=== PATIENT | male | born 1970 | race Caucasian/White ===

== ENCOUNTER 2017-10-16 00:56 | Observation (INO) | payer BC ==
[2017-10-16] MEDS ORDERED: NS 1,000 ML IV ONE ×3 (01:13→03:55)
--- NOTE | 2017-10-16 01:21 | EDPHY ---
H & P Stated Complaint: dizziness Time Seen by Provider: 10/16/17 01:34 HPI/ROS: CHIEF COMPLAINT: lightheadedness, low blood pressure. HISTORY OF PRESENT ILLNESS: This is a 47-year-old male, history of diabetes, hypertension he presents emergency room with lightheadedness and low blood pressure. Patient states that he had a normal day today he went upstairs to go finished the show that they were watching he got up out of bed and got very lightheaded he was going to pass out. He denies any abdominal pain. He felt very lightheaded felt like he was going to pass out. He took his blood pressure multiple times at home and had blood pressure readings in the 70s to 80s systolic. He presents emergency room is noted to be hypotensive in the 70s. Patient needs blood pressure typically runs 120 systolic. Past Medical History: Diabetes, hypertension Past Surgical History: No recent surgery Social History: He denies drugs alcohol tobacco Family History: Noncontributory ROS REVIEW OF SYSTEMS: 10 Systems were reviewed and negative with the exception of the elements mentioned in the history of present illness. Exam Constitutional triage nursing summary reviewed, vital signs reviewed, awake/ alert. Vital signs noted at triage is slightly hypotensive. Blood pressure in the 70s. Eyes normal conjunctivae and sclera, EOMI, PERRLA. HENT normal inspection, atraumatic, moist mucus membranes, no epistaxis, neck supple/ no meningismus, no raccoon eyes. Respiratory clear to auscultation bilaterally, normal breath sounds, no respiratory distress, no wheezing. Cardiovascular rate normal, regular rhythm, no murmur, no edema, distal pulses normal. Gastrointestinal soft, non-tender, no rebound, no guarding, normal bowel sounds, no distension, no pulsatile mass. Genitourinary no CVA tenderness. Musculoskeletal no midline vertebral tenderness, full range of motion, no calf swelling, no tenderness of extremities, no meningismus, good pulses, neurovascularly intact. Skin pink, warm, & dry, no rash, skin atraumatic. Neurologic awake, alert and oriented x 3, AAOx3, moves all 4 extremities equally, motor intact, sensory intact, CN II-XII intact, normal cerebellar, normal vision, normal speech. Psychiatric normal mood/affect. Heme/Lymph/Immune no lymphadenopathy. Differential Diagnosis: Includes but is not limited to in a particular order hypotension due to dehydration, cardiac arrhythmia, acute coronary syndrome, PE , aortic dissection, aneurysm, medication induced, Medical Decision Making: Plan for this patient IV establishment IV fluid bolus , check blood work, chest x-ray, EKG, troponin and close monitoring his vitals. Re-evaluation: EKG interpretation by me on record in [employer] system. Impression time of EKG 1:13 a.m., sinus rhythm rate of 76. No signs of acute ischemia or cardiac arrhythmia. 0543: ED x-ray chest one view reviewed negative for acute cardiopulmonary disease. Neuro mediastinum. No cardiomegaly. No evidence of pneumonia 0543: Patient resting comfortably. He has had hypotension here multiple times despite lead 3 L of fluid. At this time is blood pressure is 113/79 heart rate 68 pulse ox 95%. Unclear etiology of hypotension. However given his persistent hypertension patient be admitted the hospital for observation. There is no evidence of infection on exam. Lactic acid is normal. No high white blood cell count. No fever. Patient has no complaints except lightheadedness. Plan will be for observation today due to persistent hypotension. It is possible he was dehydrated also takes blood pressure medication he reports he did not take any additional blood pressure medication. He has not had any chest pain or shortness of breath. 0600: Patient has persistent hypotension here. This is unclear etiology of his hypotension. He does not appear septic. Lactic acid was normal. It is possible he has hypotensive due to dehydration, being diabetic and his medications. Plan will be for admission for hypotension and observation. He has had 3 L of fluid. Blood pressure slightly improved. Spoke with the hospitalist service Dr. Hall to admit. Source: Patient - Personal History Current Tetanus Diphtheria and Acellular Pertussis (TDAP): Yes - Medical/Surgical History Hx Asthma: No Hx Chronic Respiratory Disease: No Hx Diabetes: Yes Hx Cardiac Disease: No Hx Renal Disease: No Hx Cirrhosis: No Hx Alcoholism: No Hx HIV/AIDS: No Hx Splenectomy or Spleen Trauma: No Other PMH: DM2, arachonoididtis, fusion, lamenectomies, neurostimulator, - Social History Smoking Status: Never smoked Constitutional: Initial Vital Signs Temperature (C) 36.5 C 10/16/17 01:04 Heart Rate 79 10/16/17 01:04 Respiratory Rate 16 10/16/17 01:04 Blood Pressure 76/52 L 10/16/17 01:04 O2 Sat (%) 94 10/16/17 01:04 O2 Delivery Mode Room Air Allergies/Adverse Reactions: No Known Allergies Allergy (Verified 10/16/17 08:31) Home Medications: Medication Instructions Recorded Loratadine 10 - 20 mg PO DAILY PRN 10/16/17 Tizanidine HCl 8 - 12 mg PO HS PRN 10/16/17 Venlafaxine HCl [Venlafaxine HCl 150 mg PO DAILY 10/16/17 ER] metFORMIN HCL [Glucophage 500 mg 1,000 mg PO BIDMEAL 10/16/17 (*)] oxyCODONE HCL/ACETAMINOPHEN 1 each PO QID PRN 10/16/17 [Percocet 10-325 mg Tablet] sitaGLIPtin PHOSPHATE [Januvia 100 100 mg PO DAILY 10/16/17 MG (*)] Medical Decision Making - Data Points Laboratory Results: Laboratory Results 10/16/17 01:20 10/16/17 01:20 Microbiology Results: MICROBIOLOGY 10/16/17 04:45 Blood Blood Culture - Preliminary Medications Given: Discontinued Medications Acetaminophen (Tylenol) 650 mg PO Q4HRS PRN PRN Reason: Pain, Mild/Fever, Can Take PO Stop: 04/14/18 06:40 Last Admin: 10/16/17 12:27 Dose: 650 mg Cetirizine HCl (Zyrtec) 10 mg PO DAILY [place] Stop: 04/14/18 09:44 Last Admin: 10/16/17 10:04 Dose: 10 mg Sodium Chloride (Ns) 1,000 mls @ 0 mls/hr IV EDNOW ONE; Wide Open PRN Reason: Protocol Stop: 10/16/17 01:14 Last Admin: 10/16/17 01:22 Dose: 1,000 mls Sodium Chloride (Ns) 1,000 mls @ 0 mls/hr IV ONCE ONE PRN Reason: Wide Open Stop: 10/16/17 01:52 Last Admin: 10/16/17 01:55 Dose: 1,000 mls Sodium Chloride (Ns) 1,000 mls @ 0 mls/hr IV ONCE ONE; Wide Open PRN Reason: Protocol Stop: 10/16/17 03:56 Last Admin: 10/16/17 03:56 Dose: 1,000 mls Sodium Chloride (Ns) 1,000 mls @ 150 mls/hr IV CONT [facility] Stop: 04/14/18 06:44 Last Admin: 10/16/17 09:15 Dose: 1,000 mls Oxycodone HCl (Oxycodone Ir) 5 mg PO QID PRN PRN Reason: Pain, Severe Able to Take PO Stop: 10/26/17 09:38 Last Admin: 10/16/17 10:04 Dose: 5 mg Oxycodone/Acetaminophen (Percocet 5/325) 1 tab PO QID PRN PRN Reason: Pain, Breakthrough Last Admin: 10/16/17 10:04 Dose: 1 tab Sitagliptin Phosphate (Januvia) 100 mg PO DAILY [facility] Stop: 04/14/18 08:59 Last Admin: 10/16/17 10:04 Dose: 100 mg Venlafaxine HCl (Effexor Xr) 150 mg PO DAILY [place] Stop: 04/14/18 08:59 Last Admin: 10/16/17 10:04 Dose: 150 mg Point of Care Test Results: Chemistry 10/16/17 01:59 POC Troponin I 0.01 ng/mL ng/mL (0.00-0.08) Departure - Departure Disposition: [facility] Acute Clinical Impression: Dehydration Hypotension Qualifiers: Hypotension type: unspecified hypotension type Qualified Code(s): I95.9 - Hypotension, unspecified Condition: Fair
[2017-10-16 01:32] LABS: PLATELET COUNT 339 10^3/uL (150-400)
[2017-10-16 01:40] LABS: INR 0.98 (0.83-1.16); PROTIME(PATIENT) 13.2 SEC (12.0-15.0)
[2017-10-16] MEDS ORDERED: ACETAMINOPHEN 325 MG TAB PO PRN (06:41)
[2017-10-16] MEDS ORDERED: ONDANSETRON 4 MG/2 ML VIAL IVP PRN (06:41)
[2017-10-16] MEDS ORDERED: NS 1,000 ML IV SCH (06:45)
[2017-10-16] MEDS ORDERED: OXYCODONE/APAP 5/325 TAB PO PRN (08:33)
[2017-10-16] MEDS ORDERED: D50W 25 GM/50 ML SYR IVP PRN (08:44)
[2017-10-16] MEDS ORDERED: VENLAFAXINE XR 150 MG CAP PO SCH (09:00)
--- NOTE | 2017-10-16 09:21 | GHP ---
DATE OF ADMISSION: 10/16/2017 CHIEF COMPLAINT: Hypotension. HISTORY OF PRESENT ILLNESS: This is a 47-year-old man with hypertension, diabetes, chronic pain who presents with low blood pressures. He tells me that yesterday was a normal day. He cleaned up aroun d the house. He ate dinner and was watching movies. He went upstairs, lay down to finish the movie. When he stood up, he felt very dizzy and lightheaded. He took his blood pressure. It was around 8 0/50. This is quite low for him. He rechecked it a few times, got similar readings, and then the samara hernandez was airing out he believes because his blood pressure was too low to read. He did not have any nausea, vomiting, fever, diarrhea yesterday. He ate and drank normally. He did not have any chest pain during this event though he did have a small amount on the way to the hospital. He takes lisino pril 10 mg which was started about a month ago and metoprolol 25 mg which he believes was started abo ut a year ago. He has chronic pain, was previously taking Nucynta 200 mg twice a day, changed to a l cathy-acting hydrocodone at 30 mg twice a day. He continues on his normal Percocet which is approximat katlin 40 mg of oxycodone over a 24-hour period. He had a "leaky valve" which was repaired when he was an infant at 6-month-old. He does not follow up with a target setter. He notes increased urinary nata quency over the past few weeks. His last A1c was 7.2% in June. He is currently on metformin as well as Januvia for diabetes. He has received 3 L of normal saline in the emergency department, he feels significantly better. Cur rently, blood pressures are normal. PAST MEDICAL/SURGICAL HISTORY: 1. Hypertension. 2. Diabetes mellitus. 3. Leaky valve which was repaired at 6-month-old. 4. Chronic pain on continuous narcotics. 5. Asthma. MEDICATIONS: Please see medication reconciliation. ALLERGIES: No known drug allergies. FAMILY HISTORY: Reviewed and noncontributory. SOCIAL HISTORY: He rarely drinks alcohol. He does not smoke. Transfer please add to past medical h istory. REVIEW OF SYSTEMS: A 10-point review of systems is conducted and is negative except per HPI. PHYSICAL EXAM: VITAL SIGNS: Blood pressure 115/77, heart rate 75, respiration rate 16, saturating 9 4% on room air. He is afebrile. GENERAL: The patient is a pleasant man who appears comfortable, re sting in no acute distress. HEENT: Shows him to be normocephalic, atraumatic. CARDIOVASCULAR: Reg ular rate and rhythm. I do not appreciate any murmurs, rubs, or gallops. PULMONARY: Lungs clear to auscultation bilaterally. ABDOMEN: Soft, nontender, nondistended. SKIN: Shows no rash on his peg k, torso, or legs. : Shows no Quinones. NEUROLOGIC: Shows him to be alert and oriented x3. He is moving all extremities. PSYCHIATRIC: Shows a normal mood and affect. LABORATORY DATA: Hemoglobin is 12.9. Platelets are 339. INR is 0.9. D-dimer is 0.45. Lactic acid is 1.1. Creatinine is 2.5. Glucose is 359. ALT is 81. Procalcitonin is 0.16. Urinalysis shows 3 + glucose. DATA: 1. I personally viewed and interpreted his chest x-ray. This shows a normal mediastinum. This is a normal chest x-ray. 2. I reviewed his chart including Dr. Byers's note. IMPRESSION AND PLAN: 1. Hypotension: Suspect multifactorial. I believe he is likely dehydrated from glucosuria given hi s urinalysis and history of polyuria. His diabetes may not be very well controlled. He is also on a ntihypertensives. Lisinopril was started about 1 month ago. Additionally contributing likely is a c hange in narcotics. He is on metoprolol which may blunt a tachycardic response. Also consider pulmo nary embolus although his D-dimer is negative. Also consider cardiac etiology. We will check anothe r troponin as well as an echocardiogram. Electrocardiogram was performed but I do not have access to it now. I am repeating. He has no evidence for sepsis or infection. His blood pressure is markedl y improved with 3 L of intravenous fluids. We will continue intravenous fluids today and recheck nata quent blood pressures. He will also be monitored on telemetry. 2. Anemia: He has no evidence of blood loss; however, certainly could cause hypotension as well. W e will recheck a hemoglobin at noon. 3. Mild acute kidney injury: Suspect that this is due to hypotension and lisinopril use. Will hold lisinopril for now, recheck this with noon labs. I suspect this will improve with intravenous fluid s. 4. Diabetes: Appears uncontrolled given glucose of 359 and 3+ glucose in his urinalysis. I would h old metformin now with a mild acute kidney injury. We will continue Januvia, recheck his glucoses q. a.c., consider restarting metformin, and an additional oral medication. 5. Chronic pain on continuous narcotics: We will hold his long-acting hydrocodone for now as this i s new. Continue his Percocet. /[id number]/MODL
[2017-10-16] MEDS ORDERED: oxyCODONE IR 5 MG TAB PO PRN (09:39)
[2017-10-16] MEDS ORDERED: CETIRIZINE 10 MG TAB PO SCH (09:45)
--- NOTE | 2017-10-16 11:35 | ECHO ---
[email or web address] [address] [address] Main: [phone] Fax: Transthoracic Echocardiogram Name: GA EVANS MR#: [id number] Study Date: 10/16/2017 Study Time: 09:31 AM Date of : 1970 Age: 47 year(s) Height: 175.3 cm (69 in.) Weight: 84.82 kg (187 lb.) BSA: 2.01 m2 Gender: Male Examination: Echo Indication: Hypotension Image Quality: Contrast: Requested by: Rashid Ingram BP: 136 mmHg/85 mmHg Heart Rate: Rhythm: Indication: Hypotension Procedure Staff Overlay Operator: Sherrie Rich [facility] Reading Physician: Thaddeus Cabrera MD Requesting Provider: Conclusions: Normal size left ventricle. No LV hypertrophy. Normal global systolic LV function. The ejection fraction is estimated to be 65-70 %. Trivial mitral valve regurgitation. The aortic valve is tri-leaflet. The tricuspid valve is normal in appearance and function. Trivial tricuspid valve regurgitation. No pericardial effusion. Measurements: Chambers Valvular Assessment AV/MV Valvular Assessment TV/PV Normal Normal Normal Name Value Range Name Value Range Name Value Range Ao Blanca (MM): 3.6 cm (2.2 cm-3.7 AV Vmax: 1.10 m/s (1 m/s-1.7 cm) m/s) IVSd (2D): 0.8 cm (0.6 cm-1.1 AV meanP mmHg ( - ) cm) MV E Vmax: 0.96 m/s ( - ) LVDd (2D): 5.0 cm (4.2 cm-5.9 MV A Vmax: 0.60 m/s ( - ) cm) MV E/A: 1.60 ( - ) LVDs (2D): 3.0 cm (2.1 cm-4 cm) LVPWd (2D): 0.8 cm (0.6 cm-1 cm) LVEF (MOD4): 68 % (>=55 %) EF Range: 65-70 % Continued Measurements: Chambers Valvular Assessment AV/MV Patient: GA EVANS Study Date: 10/16/2017 Page 1 of 2 09:31 AM Name Value Name Value LADs Lon.5 cm MV E' Septal: 0.10 m/s LA Area: 15.0 cm2 MV E/E' Septal: 9.60 MV E/E' Lateral: 9.00 Additional Vessels Name Value Ao Ascendin.2 cm Findings: Left Ventricle: Normal size left ventricle. No LV hypertrophy. Normal global systolic LV function. The ejection fraction is estimated to be 65-70 %. No regional wall motion abnormality. Normal diastolic LV function. Right Ventricle: Normal size right ventricle. Left Atrium: The left atrium is normal in size. Right Atrium: The right atrium is normal in size. Mitral Valve: The mitral valve is normal in appearance and function. Trivial mitral valve regurgitation. Aortic Valve: The aortic valve is normal in appearance and function. The aortic valve is tri-leaflet. Tricuspid Valve: The tricuspid valve is normal in appearance and function. Trivial tricuspid valve regurgitation. Pulmonic Valve: The pulmonic valve is normal in appearance and function. Aorta: The aorta is normal. Pericardium: No pericardial effusion. (No Signature Object) Patient: GA EVANS Study Date: 10/16/2017 Page 2 of 2 09:31 AM [id number]
[2017-10-16] MEDS ORDERED: INSULIN LISPRO 100 UNIT/ML SC SCH (12:00)
[2017-10-16 12:01] VITALS: BP 111/63
--- NOTE | 2017-10-16 14:12 | GDS ---
ALL DIAGNOSES: 1. Hypotension. 2. Dehydration. 3. Anemia. 4. Hyperglycemia. 5. Diabetes. 6. Arachnoiditis. 7. Left ear pain. 8. Acute kidney injury. HOSPITAL COURSE: A 47-year-old man who presented with lightheadedness and hypotension at home. His initial blood pressure here was 76/52. He, additionally, had an elevated creatinine at 1.5. I suspe ct the etiology is multifactorial. He is on antihypertensives. Lisinopril was started 1 month ago. He was dehydrated, I am concerned for polyuria from diabetes although, he tells me was normal blood sugars are 150-170, and his last A1c was 7.2. He started a new long-acting narcotic for chronic arac hnoiditis and back pain. I am concerned that this is also positive. He had recently had an unremark able EKG, negative troponins, no events on telemetry, unremarkable echocardiogram with a normal eject ion fraction. His blood pressures have come up with intravenous fluids. Last blood pressure is 111/ 63, and he is not symptomatic. He has no evidence for an infection, afebrile, normal white count. P ulmonary embolism is very unlikely with a D-dimer 0.45 and no signs or symptoms of a DVT. PLAN: I recommend the following. Hold antihypertensives including lisinopril and metoprolol. Follo w blood pressures closely at home and return to the hospital if they continue to be low. Continue pr esent diabetes medications, follow blood sugars closely as an outpatient, followup with Dr. Burnham for ongoing diabetic management. Hold long-acting hydrocodone, supplement with additional Percocet as ne eded to control pain and prevent withdrawal. He has a followup with his Pain Management Physician todd coleman this week. Followup with Dr. Burnham for ear pain. I do not see any evidence of an ear infection o n my otoscopic exam today. DISPOSITION: He is discharged home with his in stable condition. /[id number]/MODL
--- NOTE | 2017-10-19 23:08 | CPEKG ---
Test Reason : OPEN Blood Pressure : / mmHG Vent. Rate : 066 BPM Atrial Rate : 065 BPM P-R Int : 126 ms QRS Dur : 102 ms QT Int : 398 ms P-R-T Axes : 068 080 053 degrees QTc Int : 417 ms Sinus rhythm Confirmed by Chidi Byers ([id number]) on 10/19/2017 11:08:09 PM Referred By: Confirmed By:Chidi Byers
== END 2017-10-16 14:07 | disposition home or self-care (01) ==
LOC: F2W 09:29
PROVIDERS: ADMIT Family Medicine; ATTEND Student in an Organized Health Care Education/Training Program
DX: I95.9 Hypotension, unspecified (principal); E86.0 Dehydration; D64.9 Anemia, unspecified; E11.65 Type 2 diabetes mellitus with hyperglycemia; G03.9 Meningitis, unspecified; N17.9 Acute kidney failure, unspecified
CPT/HCPCS: 71045; 93005; 93306; G0378; 84484-PO